=== PATIENT | female | born 1990 | race Hispanic/Latino ===

== ENCOUNTER 2020-05-01 18:18 | Emergency (ER) | payer MEDICAID, OTHER ==
[2020-05-01 20:12] LABS: BASOPHILS % (AUTO) 0.5 % (0.0-5.0); EOSINOPHILS % (AUTO) 0.8 % (0.0-8.0); MEAN CORPUSCULAR HEMOGLOBIN 29.6 pg (27.0-33.0); MEAN CORPUSCULAR HGB CONC 33.5 g/dL (32.0-36.0); MEAN CORPUSCULAR VOLUME 88.5 fL (79-99); MONOCYTES % (AUTO) 5.5 % (3.0-13.0); PLATELET COUNT (AUTO) 394 K/uL (130-400); RED BLOOD CELL COUNT(AUTO) 4.52 MIL/uL (4.00-5.50); WHITE BLOOD COUNT (AUTO) 13.2 K/uL (4.8-10.8)
[2020-05-01 20:18] LABS: POTASSIUM 3.4 mmol/L (3.5-5.1)
[2020-05-01 20:30] LABS: ALBUMIN 3.8 g/dL (3.5-5.0); BILIRUBIN,TOTAL 0.2 mg/dL (0.2-1.0); TOTAL PROTEIN, SERUM 8.5 g/dL (6.0-8.3)
[2020-05-01 21:05] LABS: APPEARANCE,URINE Clear (CLEAR); BILIRUBIN,URINE Negative (NEGATIVE); COLOR,URINE Yellow (YELLOW); GLUCOSE, URINE (UA) Negative (NEGATIVE); KETONES,URINE Negative (NEGATIVE); LEUKOCYTE ESTERASE ,URINE Moderate (NEGATIVE); NITRATE,URINE Negative (NEGATIVE); OCCULT BLOOD,URINE Moderate (NEGATIVE); PROTEIN,URINE Negative (NEGATIVE); UROBILINOGEN,URINE 0.2 mg/dL (0.2-1.0)
[2020-05-01 21:13] LABS: HCG,QUAL RESULT NEGATIVE (NEGATIVE)
[2020-05-01 21:20] LABS: BACTERIA,URINE Rare /HPF (None Seen); RBC,URINE 0-1 /HPF (0-1); SQUAMOUS EPITHELIAL CELL,UR Few /HPF (0-2)
[2020-05-01 21:21] LABS: TRANSITIONAL EPI CELLS,URINE Rare /HPF (None Seen)
== END 2020-05-01 21:50 | disposition home or self-care (01) ==
LOC: EDH 18:18
DX: R10.2 Pelvic and perineal pain (principal); N93.9 Abnormal uterine and vaginal bleeding, unspecified; Z90.49 Acquired absence of other specified parts of digestive tract; Z79.899 Other long term (current) drug therapy; Z72.0 Tobacco use
CPT/HCPCS: 36415; 76856; 80053; 81001; 81025; 84702; 85025; 86850; 86900; 86901; 87088

== ENCOUNTER 2024-07-19 18:01 | Emergency (ER) | payer MEDICAID ==
[~2024-07-19] VITALS: Ht 152.4 cm; Wt 54.0 kg
--- NOTE | 2024-07-19 18:13 | ERN ---
ED Note History of Present Illness Stated Complaint: ABD PAIN, 10 WEEKS Chief Complaint: Abdominal Pain in Time Seen by MD: 18:06 Dictation: PATIENT IS A 33YEAR OLD FEMALE HERE WITH COMPLAINTS OF CONSTIPATION FOR THE LAST 7-8 DAYS. NO NAUSEA VOMITING SHE STATES SHE HAS BEEN ABLE TO EAT. SHE ALSO STATES SHE IS 10 WEEKS , SEEING DR. RASMUSSEN AT [facility]. NO VAGINAL BLEEDING NO CONTRACTIONS SHE STATES SHE HAS TRIED [id number] EX-LAX AND HAS TAKEN DOCUSATE SODIUM FROM HER [employer] DOCTOR. SHE STATES HOWEVER IT HAS NOT BEEN SUCCESSFUL. Allergies: Coded Allergies: No Known Allergies (Unverified Allergy, Unknown, 07/19/24) Past Medical History Past Medical History: No Pertinent History Surgical History: Cholecystectomy LMP: Mar 17, 2024 : 3 Para: 2 Aborts: 2 RN Note Reviewed/Agreed w/PFSH: Yes Review of System Dictation CONSTITUTIONAL: NEGATIVE EXCEPT FOR HPI HEAD/FACE: NEGATIVE EXCEPT FOR HPI EENT: NEGATIVE EXCEPT FOR HPI RESPIRATORY: NEGATIVE EXCEPT FOR HPI GASTROINTESTINAL/ABDOMINAL: NEGATIVE EXCEPT FOR HPI ABDOMINAL PAIN/CONSTIPATION GENITOURINARY: NEGATIVE EXCEPT FOR HPI MUSCULOSKELETAL: NEGATIVE EXCEPT FOR HPI INTEGUMENTARY: NEGATIVE EXCEPT FOR HPI NEUROLOGICAL/PSYCH: NEGATIVE EXCEPT FOR HPI HEMATOLOGIC/LYMPHATIC: NEGATIVE EXCEPT FOR HPI ALL SYSTEMS NEGATIVE, EXCEPT NOTED ABOVE. 13 POINT REVIEW OF SYSTEMS ASSESSED AND ALL NEGATIVE EXCEPT FOR ABOVE. Initial Vital Sign VS Vital Signs Date Time Temp Pulse Resp B/P (MAP) Pulse Ox O2 Delivery O2 Flow Rate FiO2 07/19/24 18:05 98.2 74 16 109/65 99 Room Air 0 07/19/24 21:20 21 Physical Exam Dictation VITAL SIGNS REVIEWED GENERAL APPEARANCE: ALERT, ORIENTED X 3, NO ACUTE DISTRESS, WELL DEVELOPED, NOURISHED. HEAD AND FACE: NON-TRAUMATIC. EYES: PERRL, PINK CONJUNCTIVAS, EYELID NO TRAUMA, ANTERIOR CHAMBER WITH ARCUS SENILIS. EARS: PINNAS INTACT AND NO SIGNS OF TRAUMA OR ERYTHEMA EAR CANALS CLEAR AND NO DISCHARGE TM NO ERYTHEMA NOSE: NO DISCHARGE, NO BLEEDING. OROPHARYNX: MOUTH NORMAL, TONGUE PINK, PHARYNX CLEAR,NO ERYTHEMA, TONSILS NO EXUDATES, NO ABSCESSES NOTED, MUCOUS MEMBRANE MOIST NECK: SUPPLE, NON-TENDER, NO THYROMEGALY, NO MASSES, NO JVD, NO BRUITS BREAST:DEFERRED CHEST:NO TENDERNESS, NO CREPITUS, NO PARADOXICAL MOVEMENT, NO RETRACTIONS LUNGS:CLEAR, WELL-VENTILATED, SYMMETRIC, NO RALES, NO WHEEZING, NO RHONCHI, NO STRIDOR, GOOD BREATH SOUNDS BILATERALLY HEART: REGULAR RATE, REGULAR RHYTHM, NO MURMUR, NO GALLOPS VASCULAR: NO PERIPHERAL EDEMA, ABDOMEN: SOFT, POSITIVE BOWEL SOUNDS, NONDISTENDED, NO GUARDING, NONTENDER, NO REBOUND, NO MASSES NO HEPATOMEGALY, NO SPLENOMEGALY, NO MAYNARD'S SIGN, NO HERNIAS. RECTAL: DEFERRED GENITAL: DEFERRED NEUROLOGICAL: NORMAL SPEECH, MOTOR FUNCTION INTACT, SENSORY FUNCTION INTACT MUSCULOSKELETAL: NECK NONTENDER, FULL RANGE OF MOTION, BACK NONTENDER, FULL RANGE OF MOTION, EXTREMITIES: NONTENDER, FULL RANGE OF MOTION SKIN: COLOR PINK, DRY, NO TURGOR, NO RASH, NO LACERATIONS, NO ABRASIONS, NO CONTUSIONS. LYMPHATIC: DEFERRED Results (Laboratory/Radiology) Laboratory/Radiology Laboratory Tests Test 07/19/24 19:30 White Blood Count 12.0 K/uL (4.8-10.8) H Red Blood Count 4.22 MIL/uL (4.00-5.50) Hemoglobin 12.8 g/dL (12.0-16.0) Hematocrit 36.9 % (36-48) Mean Corpuscular Volume 87.4 fL (79-99) Mean Corpuscular Hemoglobin 30.3 pg (27.0-33.0) Mean Corpuscular Hemoglobin Concent 34.7 g/dL (32.0-36.0) Red Cell Distribution Width 11.9 % (11.0-15.5) Platelet Count 387 K/uL (130-400) Mean Platelet Volume 10.4 fL (7.5-10.5) Immature Granulocyte % (Auto) 0.4 % (0-1) Neutrophils (%) (Auto) 72.6 % (40.0-77.0) Lymphocytes (%) (Auto) 18.7 % (21.0-51.0) L Monocytes (%) (Auto) 6.7 % (3.0-13.0) Eosinophils (%) (Auto) 1.3 % (0.0-8.0) Basophils (%) (Auto) 0.3 % (0.0-5.0) Neutrophils # (Auto) 8.7 K/uL (1.8-7.7) H Lymphocytes # (Auto) 2.2 K/uL (1.0-4.8) Monocytes # (Auto) 0.8 K/uL (0.1-1.0) Eosinophils # (Auto) 0.16 K/uL (0.00-0.70) Basophils # (Auto) 0.04 K/uL (0.00-0.20) Absolute Immature Granulocyte (auto 0.05 K/uL (0-1) Nucleated Red Blood Cells 0.0 % (0.0-0.19) Sodium Level 132 mmol/L (136-145) L Potassium Level 3.3 mmol/L (3.5-5.1) L Chloride Level 99 mmol/L (101-111) L Carbon Dioxide Level 27 mmol/L (21-32) Blood Urea Nitrogen 7 mg/dL (7-18) Creatinine 0.7 mg/dL (0.5-1.0) Glomerular Filtration Rate Calc 118 mL/min (>90) Random Glucose 115 mg/dL (70-105) H Total Calcium 9.1 mg/dL (8.5-10.1) Human Chorionic Gonadotropin, Quant 73431 mIU/mL (0-5) H ULTRASOUND DEMONSTRATES IUP 10 WEEKS SIX DAYS, HEART RATE 164 PLACENTA IS LOCATED PROXIMAL THE CERVICAL OS Labs Reviewed?: Yes ED Course ED Course Orders Procedure Category Date Status Time Cbc With Differential LAB 07/19/24 Complete 18:08 Hcg,Quantitative LAB 07/19/24 Complete 18:08 Us Ob <14 Weeks US 07/19/24 Resulted 18:08 Type And Screen BBK 07/19/24 Complete 18:08 Basic Metabolic Panel LAB 07/19/24 Complete 18:08 Bisacodyl (Dulcolax) PHA 07/19/24 Complete 18:30 Current Medications Medications (Trade) Dose Ordered Sig/Magui Route PRN Reason Start Time Stop Time Status Last Admin Dose Admin Bisacodyl (DulcoLAX) 10 mg ONCE ONCE RC 07/19/24 18:30 07/19/24 18:31 DC Vital Signs Date Time Temp Pulse Resp B/P (MAP) Pulse Ox O2 Delivery O2 Flow Rate FiO2 07/19/24 21:20 98.2 74 16 109/65 99 Room Air* 0 21 07/19/24 18:05 98.2 74 16 109/65 99 Room Air 0 2135/SPOKE WITH PATIENT AT LENGTH REGARDING FINDINGS ON ULTRASOUND AND LABS. SHE IS ALSO AWARE OF THE PLACENTA IS LOW ON THE CERVIX. FINALLY SHE WAS MADE AWARE TO STOP THE EX-LAX AND I WILL PRESCRIBE LACTULOSE WHICH IS CATEGORY B Medical Decision Making MDM MEDICAL DISCHARGE MAKING BASED ON BASIC LABS AND ULTRASOUND FOR OB PATIENT GIVEN PRUNE JUICE AND DULCOLAX SUPPOSITORY. DISCHARGED HOME WITH LACTULOSE TOLD FOLLOW THE LACTULOSE WITH HOT COFFEE OR HOT TEA SEE HER [employer] DOCTOR IN THE NEXT ONE TWO DAYS FOR FOLLOW UP DX & DISP Disposition: Discharge Departure Impression: Primary Impression: Acute constipation Additional Impressions: and not yet delivered in first trimester, Hypokalemia Condition: Stable Scripts Lactulose (Lactulose) 10 Gram/15 Ml Solution 30 ML PO BID for constipation, #250 ML 0 Refills TAKE 30 ML TWICE A DAY NEEDED FOR CONSTIPATION. SUGGEST HOT COFFEE YOUR ARE T1 HOUR AFTER INGESTION. Prov: MINA GRIMES NP 07/19/24 Referrals: TOSIN VIZCAINO MD (PCP) Time of Disposition: 21:37 I have reviewed the case, and I agree with, Diagnosis and Plan MINA GRIMES NP Jul 19, 2024 18:12
[2024-07-19] MEDS: BisaCODYL 10 MG SUPP.RECT RC ONE (18:30)
--- NOTE | 2024-07-19 18:55 | HMCIMG ---
ULTRASOUND OF THE PELVIS ULTRASOUND ABD VASCULAR LIMITED INDICATION: Pelvic pain COMPARISONS: None TECHNIQUE: Transabdominal real-time sonographic images were acquired earlier, and subsequently made available for review. FINDINGS: The uterus measures 12.2 x 7.1 x 6.5 cm. The uterus is normal in echotexture and contour. Single live intrauterine gestation corresponds to sonographic gestational age of 10 weeks 6 days +/- 6 days based on crown-rump length of 3.9 cm. No abnormal subchorionic hypoechoic area demonstrated. heart rate = 164 BPM. Tip of the placenta near the internal cervical os. The right ovary measures 2.4 x 3.1 x 1.3 cm. The right ovary is normal in size, shape and echogenicity. No right adnexal masses demonstrated. Color Doppler flow is normal throughout the right ovary. Spectral Doppler analysis demonstrates a normal waveform pattern. The left ovary measures 2.1 x 2.6 x 2.0 cm. The left ovary is normal in size, shape and echogenicity. No left adnexal masses demonstrated. Color Doppler flow is normal throughout the left ovary. Spectral Doppler analysis demonstrates a normal waveform pattern. No free pelvic fluid demonstrated. IMPRESSION: 1. Single live intrauterine gestation corresponding to sonographic gestational age of 10 weeks 6 days +/- 6 days based on crown-rump length, and with heart rate = 06/23/1963 BPM. 2. Tip of placenta near the internal cervical os. This can be reevaluated on the follow-up imaging. 3. CANDE = 02/08/2025.
[2024-07-19 19:41] LABS: BASOPHILS # (AUTO) 0.04 K/uL (0.00-0.20); BASOPHILS % (AUTO) 0.3 % (0.0-5.0); EOSINOPHILS # (AUTO) 0.16 K/uL (0.00-0.70); EOSINOPHILS % (AUTO) 1.3 % (0.0-8.0); HEMATOCRIT 36.9 % (36-48); IMMATURE GRANULOCYTE ABSOLUTE 0.05 K/uL (0-1); LYMPHOCYTES # (AUTO) 2.2 K/uL (1.0-4.8); LYMPHOCYTES % (AUTO) 18.7 % (21.0-51.0); MEAN CORPUSCULAR HEMOGLOBIN 30.3 pg (27.0-33.0); MEAN CORPUSCULAR HGB CONC 34.7 g/dL (32.0-36.0); MEAN CORPUSCULAR VOLUME 87.4 fL (79-99); MONOCYTES # (AUTO) 0.8 K/uL (0.1-1.0); MONOCYTES % (AUTO) 6.7 % (3.0-13.0); NEUTROPHILS # (AUTO) 8.7 K/uL (1.8-7.7); NEUTROPHILS % (AUTO) 72.6 % (40.0-77.0); PLATELET COUNT (AUTO) 387 K/uL (130-400); RED BLOOD CELL COUNT(AUTO) 4.22 MIL/uL (4.00-5.50); RED CELL DISTRIBUTION WIDTH 11.9 % (11.0-15.5)
[2024-07-19 19:48] LABS: CREATININE 0.7 mg/dL (0.5-1.0); POTASSIUM 3.3 mmol/L (3.5-5.1)
[2024-07-19 21:20] VITALS: BP 109/65; PULSE 74; RESP 16; TEMP 98.2; O2SAT 99
[2024-07-19] MEDS ORDERED: LACT10SO85 PO (21:39)
[2024-07-19] MEDS: PoTASSium BIcarbonate/CIT AC 25 MEQ TABLET.EFF PO ONE (22:12)
== END 2024-07-19 22:17 | disposition home or self-care (01) ==
LOC: EDH 18:01
DX: O99.611 Diseases of the digestive system complicating pregnancy, first trimester (principal); K59.00 Constipation, unspecified; O99.281 Endocrine, nutritional and metabolic diseases complicating pregnancy, first trimester; E87.6 Hypokalemia; R10.2 Pelvic and perineal pain; Z3A.10 10 weeks gestation of pregnancy; Z90.49 Acquired absence of other specified parts of digestive tract
CPT/HCPCS: 36415; 76801; 80048; 84702; 85025; 86850; 86900; 86901; 99284